=== PATIENT | male | born 1990 | race Caucasian/White ===

== ENCOUNTER 2019-01-08 05:06 | Emergency (ER) | payer MEDICAID, OTHER ==
[2019-01-08 07:44] LABS: ADD UMIC NO; UR ASCORBIC ACID NEGATIVE (NEGATIVE); UR BILIRUBIN (Dip) NEGATIVE (NEGATIVE); UR BLOOD (Dip) NEGATIVE (NEGATIVE); UR CLARITY CLEAR (CLEAR); UR COLOR YELLOW (YELLOW); UR GLUCOSE (Dip) NEGATIVE (NEGATIVE); UR KETONES (Dip) NEGATIVE (NEGATIVE); UR LEUKOCYTE ESTERASE (Dip) NEGATIVE Leu/ul (NEGATIVE); UR NITRITE (Dip) NEGATIVE (NEGATIVE); UR TOTAL PROTEIN (Dip) NEGATIVE (NEGATIVE); UR UROBILINOGEN (Dip) NEGATIVE (NEGATIVE)
[2019-01-08] MEDS: CEFTRIAXONE 250 MG INJ IM (08:46)
[2019-01-08] MEDS ORDERED: CEFTRIAXONE 1 GM/50 ML (PMX) 50 ML IVPB (09:00)
== END 2019-01-08 08:56 | disposition home or self-care (01) ==
LOC: FTE 05:06
DX: N45.1 Epididymitis (principal); F17.210 Nicotine dependence, cigarettes, uncomplicated; Z72.51 High risk heterosexual behavior
CPT/HCPCS: 76870; 81003; 87086; 96372; 99285-25

== ENCOUNTER 2019-07-13 17:01 | Emergency (ER) | payer SELFPAY, MEDICAID ==
[2019-07-13] MEDS: IBUPROFEN 600 MG TAB PO (18:21)
== END 2019-07-13 20:50 | disposition home or self-care (01) ==
LOC: E/R 17:01
DX: S01.01XA Laceration without foreign body of scalp, initial encounter (principal); S20.419A Abrasion of unspecified back wall of thorax, initial encounter; S80.12XA Contusion of left lower leg, initial encounter; S62.025A Nondisplaced fracture of middle third of navicular [scaphoid] bone of left wrist, initial encounter for closed fracture; W14.XXXA Fall from tree, initial encounter; Y92.89 Other specified places as the place of occurrence of the external cause; Z87.891 Personal history of nicotine dependence
CPT/HCPCS: 12001; 70450; 73110-LT; 99284-25

== ENCOUNTER 2019-07-23 13:35 | Emergency (ER) | payer MEDICAID | END 2019-07-23 15:13 | disposition home or self-care (01) | LOC: FTE 13:35 | DX: Z48.02 Encounter for removal of sutures (principal) | CPT/HCPCS: 99281; Z7502 ==